=== PATIENT | female | born 1985 | race Caucasian/White ===

== ENCOUNTER → 2019-12-11 | Outpatient (CLI) | payer OTHER | END | disposition home or self-care (01) | LOC: LABWHC1 10:20 | PROVIDERS: ATTEND Family Medicine | DX: Z20.828 Contact with and (suspected) exposure to other viral communicable diseases (principal) | CPT/HCPCS: U0003; C9803 ==

== ENCOUNTER 2020-05-04 15:34 | Inpatient (IN) | payer OTHER ==
[2020-05-07] MEDS ORDERED: LIDOCAINE 0.5% (PF) 5 MG/ML (50 ML SDV) SQ PRN (06:29)
[2020-05-07] MEDS ORDERED: OXYTOCIN 10 UNIT/ML 1 ML VIAL IM PRN (06:29)
[2020-05-07] MEDS ORDERED: CARBOPROST TROMETHAMINE 250 MCG/ML 1 ML AMP IM PRN (06:29)
[2020-05-07] MEDS ORDERED: TERBUTALINE 1 MG/ML VIAL SQ PRN (06:29)
[2020-05-07] MEDS ORDERED: METHYLERGONOVINE 0.2 MG/ML 1 ML AMP IM PRN (06:29)
[2020-05-07] MEDS ORDERED: PENICILLIN G POTASSIUM 5,000,000 UNIT in DEXTROSE 5% IN WATER 100 ML IVPB STA ×2 (06:29)
[2020-05-07] MEDS ORDERED: OXYTOCIN 30 UNITS/500 ML NS 30 UNIT in SALINE 1 500ML.BAG IV SCH ×2 (06:30→20:15)
[2020-05-07] MEDS: LACTATED RINGERS 1,000 ML IV SCH ×3 (06:36→16:46)
[2020-05-07 07:15] LABS: Basophils % (A) 0 %; Eosinophils # (A) 0.1 k/uL (0-0.7); Eosinophils % (A) 1 %; HCT 35.6 % (34.0-46.0); HGB 12.3 gm/dL (11.4-16.0); Lymphocytes # (A) 1.8 k/uL (1.0-4.8); Lymphocytes % (A) 19 %; MCH 30.5 pg (25.0-35.0); MCHC 34.5 g/dL (31.0-37.0); MCV 88.4 fL (80.0-100.0); Mean Platelet Volume 9.4; Monocytes # (A) 0.7 k/uL (0-1.0); Monocytes % (A) 7 %; Neutrophils # (A) 6.9 k/uL (1.3-7.7); Neutrophils % (A) 72 %; Platelet Count 197 k/uL (150-450); RBC 4.03 m/uL (3.80-5.40); RDW 14.3 % (11.5-15.5); WBC 9.6 k/uL (3.8-10.6)
--- NOTE | 2020-05-07 07:59 | P.HPOB ---
History of Present Illness H&P Date: 05/07/20 Chief Complaint: Postdates This is a 34-year-old 3 para 2001 woman with an estimated due date of 05/02/2020 who was admitted at 40-5/7 weeks gestation for postdates induction of labor. Estimated due date is based on first trimester ultrasound. Her pregnan cy has been uncomplicated. She has a history of chronic hypertension on however has not been on medications for many years and her blood pressures have been stable throughout the . She reports irregular contraction activity over the last several days but denies leakage of fluids or vaginal bleeding. RODRIGUE yesterday was 14 cm and she had a reactive NST. Obstetric history: 1999 1138 week normal spontaneous vaginal delivery, 2012 39 week normal spontaneous vaginal delivery. Largest infant was 7 lbs. 9 oz. Laboratory data: Group B strep positive, blood type O+, antibody screen negativ e, rubella immune, VDRL nonreactive, hep Glenny surface antigen negative, HIV negative, gonorrhea and clinic cultures negative, glucose tolerance testing within normal limits. Review of Systems All systems: negative Past Medical History Past Medical History: No Reported History Past Surgical History: No Surgical Hx Reported Past Anesthesia/Blood Transfusion Reactions: No Reported Reaction Past Psychological History: No Psychological Hx Reported Smoking Status: Never smoker Past Alcohol Use History: None Reported Past Drug Use History: None Reported Medications and Allergies Home Medications Medication Instructions Recorded Confirmed Type Pnv No.95/Ferrous Fum/Folic AC 1 tab PO ONCE 05/07/20 05/07/20 History [ Multivitamin Tablet] Allergies Allergy/AdvReac Type Severity Reaction Status Date / Time No Known Allergies Allergy Verified 05/07/20 06:28 Exam Intake and Output 05/06/20 05/07/20 05/07/20 22:59 06:59 14:59 Other: Weight 99.337 kg This is a pleasant, visibly gravid female. By Phillip estimated weight is 8 pounds. On pelvic examination the cervix is 3 cm dilated, 80% effaced and the vertex is in the -2 station. Artificial rupture of membranes is undertaken and scant clear fluid is noted. heart tones are category 1 and she is irregularly yudy. Results Result Diagrams: 05/07/20 06:53 Assessment and Plan (1) Post-dates Current Visit: Yes Status: Acute Code(s): O48.0 - POST-TERM SNOMED Code(s): 68740735 (2) GBS (group B Streptococcus carrier), +RV culture, currently Current Visit: Yes Status: Acute Code(s): O99.820 - STREPTOCOCCUS B CARRIER STATE COMPLICATING SNOMED Code(s): 5644961406822 Plan: 34-year-old 3 para 2 woman admitted at 40-5/7 weeks gestation for postda zuhair induction of labor. Group B strep prophylactic antibiotics have been initiated. She is Rh+. status is currently reassuring. She may have an epidural anesthetic upon request. Anticipate normal spontaneous vaginal delivery.
[2020-05-07] MEDS: PENICILLIN G POTASSIUM 2,500,000 UNIT in DEXTROSE 5% IN WATER 100 ML IVPB SCH ×6 (10:59→14:48)
[2020-05-07] MEDS ORDERED: SODIUM CHLORIDE 0.9% 100 ML BAG ONE (16:30)
[2020-05-07] MEDS ORDERED: ROPIVACAINE 5MG/ML 20ML VIAL ONE (16:30)
[2020-05-07] MEDS ORDERED: fentaNYL (PF) 50 MCG/ML 5 ML AMP ONE (16:30)
[2020-05-07] MEDS ORDERED: CITRIC ACID-SODIUM CITRATE 15 ML CUP PO ONE ×2 (18:55→19:00)
[2020-05-07] MEDS ORDERED: KETOROLAC 15 MG/ML 1 ML VIAL ONE (19:06)
[2020-05-07] MEDS ORDERED: NALBUPHINE 10 MG/ML (1 ML AMP) ONE (19:06)
[2020-05-07] MEDS ORDERED: MORPHINE SULFATE (PF) 0.3 MG/0.3 ML SYR ONE (19:06)
[2020-05-07] MEDS ORDERED: ONDANSETRON 4 MG/2 ML VIAL ONE (19:06)
[2020-05-07] MEDS ORDERED: LIDOCAINE 2% (PF) 20 MG/ML 10 ML AMP ONE (19:06)
[2020-05-07] MEDS ORDERED: OXYTOCIN 10 UNIT/ML 1 ML VIAL ONE (19:06)
[2020-05-07] MEDS ORDERED: ZOLPIDEM 5 MG TAB PO PRN (20:01)
[2020-05-07] MEDS ORDERED: SIMETHICONE 80 MG CHEWABLE PO PRN (20:01)
[2020-05-07] MEDS ORDERED: NALOXONE 0.4 MG/ML 1 ML VIAL IV PRN (20:01)
[2020-05-07] MEDS ORDERED: METOCLOPRAMIDE 5 MG/ML 2 ML VIAL IVP PRN (20:01)
[2020-05-07] MEDS ORDERED: diphenhydrAMINE 25 MG CAP PO PRN (20:01)
[2020-05-07] MEDS ORDERED: diphenhydrAMINE 50 MG CAP PO PRN (20:01)
[2020-05-07] MEDS ORDERED: diphenhydrAMINE 50 MG/ML 1 ML VIAL IVP PRN ×2 (20:01)
[2020-05-07] MEDS ORDERED: ONDANSETRON 4 MG/2 ML VIAL IVP PRN (20:01)
[2020-05-07] MEDS ORDERED: HYDROmorphone 2 MG TAB PO PRN (20:01)
--- NOTE | 2020-05-07 20:01 | P.OP ---
Date of Procedure: 05/07/20 Preoperative Diagnosis: Postdates Arrestive descent and dilatation in the first stage Group B strep positive Postoperative Diagnosis: Postdates Arrestive descent dilatation in the first stage Occiput posterior position Group B strep positive Procedure(s) Performed: Primary low transverse section Anesthesia: epidural Surgeon: Irasema Roca Glost Tile Shader #1: Michelle Bean Estimated Blood Loss (ml): 400 IV fluids (ml): 800 Urine output (ml): 200 Pathology: none sent Condition: stable Disposition: PACU Indications for Procedure: This is a 34-year-old 3 para 2001 woman who is admitted at 40-5/7 weeks gestation for postdates induction of labor. On admission she was 3 cm dilated and Pitocin induction of labor was initiated. She underwent artificial rupture of membranes. She progressed to approximately 5.5 cm x 4 PM and received an epidural anesthetic. She received group B strep prophylactic antibiotics. By 7 PM she remained approximately 5.5 cm dilated and had significant caput Formation and high station. Significant concern for mal- presentation was had. Options were reviewed with the patient including risks and benefits of section versus undergoing induction of labor. They wish to proceed with section which I believe is the appropriate decision. Risks benefits and alternatives were reviewed. Operative Findings: Male in the asynclitic occiput posterior position with nuchal cord 1. Apgars of 8 at 1 minute and 9 at 5 minutes weighing 7 lbs. 2 oz., 30-40 g. Normal-appearing bilateral fallopian tubes and ovaries. Description of Procedure: After the patient and her were counseled and the epidural anesthetic was bolused, she was taken to the operating room where she was positioned, prepped and draped in the dorsal supine position with a leftward tilt. Khalil catheter was in place. After anesthetic was confirmed adequate a low transverse skin incision was made and carried down to the underlying fascia sharply and with the electrocautery. The fascia was incised in the midline and extended bilaterally. The inferior and superior aspects of the fascial incision were elevated and the underlying rectus muscles dissected off sharply and with the electrocautery. The rectus muscles were in the midline and the peritoneum was tented up and entered sharply. The peritoneal incision was extended inferiorly and superiorly with good visualization the bladder. The bladder blade was placed and the vesicouterine peritoneum was identified, tented up and entered. Bladder flap was created. The low uterine segment was very thin. A low uterine incision was made and bluntly carried down to the underlying amniotic fluid. On the incision was then extended bilaterally bluntly. The 's head was not well engaged and was delivered from the incision from the occiput posterior, asynclitic position. A nuchal cord 1 was removed. Nose and mouth were bulb suctioned. The rest the was delivered onto the field. The cord was clamped and cut and the infant was taken to the warmer. An intact, three-vessel cord placenta was then manually removed. The uterus was exteriorized. The uterine incision was delineated using Marie's. The low portion of the uterine incision was done to be extremely thin and friable. The uterus was closed carefully in a running locked fashion with 0 Vicryl suture followed by second imbricating layer of the same. Additional [id number]-al-pioqz sutures were placed along the very delicate low on the lower aspect of the incision. Surgicel was placed along the incision after was returned to the abdomen to ensure hemostasis. Hemostasis was observed. The gutters were cleared of all clot and debris. The peritoneum was reapproximated in the midline. The rectus muscles were inspected and Bovie electrocautery was utilized were necessary for hemostasis. The fascia was then closed in a running fashion with 0 Vicryl suture. The subcuticular tissues copiously suction irrigated and reapproximated with 3-0 chromic. The skin was then closed in a subcutaneous fashion with 4-0 Vicryl suture. REPORTED to me as correct by the operating room staff. She received Pitocin following cord clamping and antibiotics preoperatively. She was transported to recovery area in good condition.
[2020-05-08] MEDS: LACTATED RINGERS 1,000 ML IV SCH ×6 (05:50→23:21)
[2020-05-08] MEDS: PENICILLIN G POTASSIUM 2,500,000 UNIT in DEXTROSE 5% IN WATER 100 ML IVPB SCH ×2 (05:50)
[2020-05-08] MEDS: IBUPROFEN IV 800 MG in SODIUM CHLORIDE 0.9% 250 ML IV SCH ×2 (05:51→08:54)
[2020-05-08] MEDS: ACETAMINOPHEN TAB 500 MG TAB PO SCH ×4 (05:51→23:20)
[2020-05-08 06:09] LABS: Basophils % (A) 0 %; Eosinophils % (A) 0 %; HCT 32.1 % (34.0-46.0); HGB 10.6 gm/dL (11.4-16.0); Lymphocytes # (A) 1.7 k/uL (1.0-4.8); Lymphocytes % (A) 11 %; MCH 29.6 pg (25.0-35.0); MCV 89.7 fL (80.0-100.0); Mean Platelet Volume 9.2; Monocytes # (A) 0.7 k/uL (0-1.0); Monocytes % (A) 4 %; Neutrophils # (A) 12.5 k/uL (1.3-7.7); Neutrophils % (A) 84 %; Platelet Count 191 k/uL (150-450); RBC 3.58 m/uL (3.80-5.40); RDW 14.7 % (11.5-15.5)
--- NOTE | 2020-05-08 06:39 | P.PN ---
Progress Note - Text 05/08/20 616am 34-year-old female status post . Patient received Duramorph why the epidural in the end of the procedure, patient seen and evaluated this morning, VAS 0 with mild pruritus. Patient doing well
[2020-05-08] MEDS: SENNOSIDES-DOCUSATE SODIUM 1 EACH TAB PO SCH ×2 (08:07→19:45)
--- NOTE | 2020-05-08 09:23 | P.PNOBGPC ---
Subjective - Subjective Interval history: Feeling well overnight. Breast-feeding successfully Patient reports: Reports appetite normal, Reports pain well controlled, Reports ambulating normally, Denies voiding normally (Catheter removed 2 hours ago. No spontaneous void yet.), Denies nauseated [place]: doing well, nursing well (Circumcision completed) Objective - Vital Signs Latest vital signs: Vital Signs Temp Pulse Resp BP Pulse Ox 05/08/20 08:00 97.9 F 69 105/68 100 05/07/20 22:00 70 16 112/69 95 05/07/20 21:24 74 16 105/72 95 05/07/20 21:00 75 15 99/57 05/07/20 20:45 74 16 99/57 90 L 05/07/20 20:30 68 16 95/52 99 05/07/20 20:15 56 L 16 79/40 97 05/07/20 20:00 96.1 F L 61 16 82/44 94 L Intake and Output 05/07/20 05/08/20 05/08/20 22:59 06:59 14:59 Intake Total 132.733 Output Total 200 Balance -67.267 Intake: Intake, IV Titration 12.733 Amount Oxytocin 30 Units/500 ml 12.733 Ns 30 unit In Saline 1 500ml.bag @ Per Protocol IV .Q0M [facility] Rx#:[id number] Oral 120 Output: Urine 200 Other: Voiding Method Indwelling Catheter - Exam Extremities: Present: normal, edema. Absent: tenderness Abdomen: Present: normal appearance, soft, tenderness. Absent: distention Incision: Present: normal, dry, intact, dressed Uterus: Present: normal, firm. Absent: tenderness - Labs Labs: Abnormal Lab Results - Last 24 Hours (Table) 05/08/20 Range/Units 05:30 WBC 15.0 H (3.8-10.6) k/uL RBC 3.58 L (3.80-5.40) m/uL Hgb 10.6 L (11.4-16.0) gm/dL Hct 32.1 L (34.0-46.0) % Neutrophils # 12.5 H (1.3-7.7) k/uL Assessment and Plan (1) Post-dates Current Visit: Yes Status: Acute Code(s): O48.0 - POST-TERM SNOMED Code(s): 53407995 (2) GBS (group B Streptococcus carrier), +RV culture, currently Current Visit: Yes Status: Acute Code(s): O99.820 - STREPTOCOCCUS B CARRIER STATE COMPLICATING SNOMED Code(s): 9502057383852 (3) Nuchal cord Current Visit: Yes Status: Acute Code(s): O69.81X0 - LABOR AND DEL COMP BY CORD AROUND NECK, W/O COMPRSN, UNSP SNOMED Code(s): 753209753 (4) Occiput posterior presentation of fetus Current Visit: Yes Status: Acute Code(s): O64.0XX0 - OBSTRUCTED LABOR DUE TO INCMPL ROTATION OF HEAD, UNSP SNOMED Code(s): 17931315 (5) Status post delivery Current Visit: Yes Status: Acute Code(s): Z98.891 - HISTORY OF UTERINE SCAR FROM PREVIOUS SURGERY SNOMED Code(s): 444075306 Plan: Postop day one half status post primary low transverse section for arrest of descent and dilatation in the first stage of labor, occiput posterior position. Events of labor and delivery again reviewed with the patient and her . She is recovering well. Discussed scheduled oral pain medication use alternating ibuprofen and Tylenol. Circumcision is completed. Routine care.
[2020-05-08] MEDS: IBUPROFEN 600 MG TAB PO SCH (18:37)
[2020-05-09] MEDS: ACETAMINOPHEN TAB 500 MG TAB PO SCH (01:02)
[2020-05-09] MEDS: IBUPROFEN 600 MG TAB PO SCH ×3 (01:27→09:08)
--- NOTE | 2020-05-09 08:16 | P.DS ---
Providers Date of admission: 05/07/20 06:15 Expected date of discharge: 05/09/20 Attending physician: Irasema Roca Primary care physician: Stated None Hospital Course: This is a 34-year-old white female 3 para 2001 EDC 05/02/2020 at 40-5/7 weeks' gestation. Patient presented for induction for postdates , rupee strep cultures positive, rubella status immune, blood type O positive. Please see dictated history and physical for details. Patient had arrest of dilatation and descent in the first stage of labor and therefore a primary low transverse section was performed. She gave to a liveborn male with scores of 8 and 9 at one and 5 minutes respectively. She did receive appropriate antibiotic prophylaxis for group B strep positive status. weighed 3-40 g or 7 lbs. 2 oz. There was an estimated blood loss of 400 mL recorded. There was a nuchal cord 1. Please see dictated operative note for details. Postoperatively the patient has done well. This morning she is voiding, ambulating, passing flatus without difficulty. Vital signs are stable and she is afebrile. Fundus is firm and in the midline, symmetric and 18 week size. Circumcision has been performed. Patient's breasts are not engorged. Breast- feeding is going well. Incision is clean and dry, intact, Steri-Strips applied. Extremities are negative for edema. Patient is judged to be in very good cond ition for discharge home. She will follow-up in the office in 2 weeks. I have reminded her no intercourse, tampons or douching. She will use vlqp-dea-roplosk Advil or Aleve, or Motrin as needed for pain. She will call with any fevers shakes or chills, foul smelling or copious lochia, with the passage of large blood clots, with any pain not alleviated by agpa-kxa-vbxniik products, or indeed with any concerns. will follow-up with joiner as recommended. Assessment: Doing well day number two Patient Condition at Discharge: Good Plan - Discharge Summary Discharge Rx Participant: No New Discharge Prescriptions: No Action Pnv No.95/Ferrous Fum/Folic AC [ Multivitamin Tablet] 1 tab PO ONCE Discharge Medication List Pnv No.95/Ferrous Fum/Folic AC [ Multivitamin Tablet] 1 tab PO ONCE 05/07/20 [History] Follow up Appointment(s)/Referral(s): Irasema Roca MD [STAFF PHYSICIAN] - 2 Weeks Discharge Disposition: HOME SELF-CARE
[2020-05-09] MEDS: SENNOSIDES-DOCUSATE SODIUM 1 EACH TAB PO SCH (09:08)
[2020-05-09 09:56] VITALS: BP 130/85; PULSE 71; RESP 18; TEMP 98.5
== END 2020-05-09 14:10 | disposition home or self-care (01) | DRG 788 ==
LOC: 4FBP 05-07 06:15
PROVIDERS: ADMIT Obstetrics & Gynecology; ATTEND Obstetrics & Gynecology
PROC: 3E033VJ Introduction of Other Hormone into Peripheral Vein, Percutaneous Approach (ICD-10-PCS; 2020-05-07)
PROC: 10D00Z1 Extraction of Products of Conception, Low, Open Approach (ICD-10-PCS; principal; 2020-05-07 19:00)
DX: O48.0 Post-term pregnancy (principal); Z37.0 Single live birth; Z3A.40 40 weeks gestation of pregnancy; O16.4 Unspecified maternal hypertension, complicating childbirth; O99.824 Streptococcus B carrier state complicating childbirth; L29.9 Pruritus, unspecified; O69.81X0 Labor and delivery complicated by cord around neck, without compression, not applicable or unspecified; O66.9 Obstructed labor, unspecified; O62.0 Primary inadequate contractions; O75.89 Other specified complications of labor and delivery
CPT/HCPCS: 85025; 86850; 86900; 86901

== ENCOUNTER 2020-10-14 23:21 | Inpatient (IN) | payer OTHER ==
[2020-10-14] MEDS ORDERED: SODIUM CHLORIDE 0.9% 1,000 ML IV STA (23:55)
[2020-10-14] MEDS ORDERED: PANTOPRAZOLE 40 MG/10 ML VIAL IVP STA (23:55)
[2020-10-14] MEDS ORDERED: ONDANSETRON 4 MG/2 ML VIAL IVP STA (23:55)
[2020-10-14] MEDS ORDERED: KETOROLAC 15 MG/ML 1 ML VIAL IVP STA (23:55)
--- NOTE | 2020-10-15 00:04 | ED ---
Abdominal Pain HPI - General Chief Complaint: Abdominal Pain Stated Complaint: Rt Side Pain Time Seen by Provider: 10/14/20 23:29 Source: patient Mode of arrival: ambulatory Limitations: no limitations - History of Present Illness Initial Comments: 34-year-old female presenting to emergency Department with a chief complaint of abdominal pain. Patient reports symptoms began on Monday with somewhat of a sudden onset pain in the right lower quadrant region. States she went to her primary care physician advised to come to the emergency department appendicitis. Patient reports she has also developed nausea and multiple episodes of nonbilious and nonbloody vomiting. States her primary care physician prescribe her ciprofloxacin and she took one dose of the medication today. States the pain does not seem to be radiating. Does not appear to be postprandial. Denies any neck pain chest pain shortness of breath. She reports some chills but denie s any fevers. Denies hematuria, hematochezia or melena. Denies any vaginal symptoms. Denies dysuria, increased urgency or frequency. - Related Data Home Medications Medication Instructions Recorded Confirmed Pnv No.95/Ferrous Fum/Folic AC 1 tab PO ONCE 05/07/20 05/07/20 [ Multivitamin Tablet] Allergies Allergy/AdvReac Type Severity Reaction Status Date / Time No Known Allergies Allergy Verified 10/14/20 23:24 Review of Systems ROS Statement: Those systems with pertinent positive or pertinent negative responses have been documented in the HPI. ROS Other: All systems not noted in ROS Statement are negative. Past Medical History Past Medical History: No Reported History History of Any Multi-Drug Resistant Organisms: None Reported Past Surgical History: Section Past Anesthesia/Blood Transfusion Reactions: No Reported Reaction Past Psychological History: No Psychological Hx Reported Smoking Status: Never smoker Past Alcohol Use History: None Reported Past Drug Use History: None Reported - Past Family History Mother Family Medical History: No Reported History General Exam Limitations: no limitations General appearance: alert, in no apparent distress, obese Head exam: Present: atraumatic, normocephalic, normal inspection Eye exam: Present: normal appearance Pupils: Present: normal accommodation ENT exam: Present: normal exam, normal oropharynx, mucous membranes moist Neck exam: Present: normal inspection, full ROM. Absent: tenderness Respiratory exam: Present: normal lung sounds bilaterally. Absent: respiratory distress, wheezes, rales, rhonchi, stridor Cardiovascular Exam: Present: regular rate, normal rhythm, normal heart sounds. Absent: systolic murmur Extremities exam: Present: normal inspection, full ROM, normal capillary refill. Absent: tenderness, pedal edema, joint swelling Back exam: Present: normal inspection, full ROM. Absent: tenderness, CVA tenderness (R), CVA tenderness (L), muscle spasm, paraspinal tenderness, vertebral tenderness Neurological exam: Present: alert, oriented X3 Psychiatric exam: Present: normal affect, normal mood Skin exam: Present: warm, dry, intact, normal color Course Vital Signs 10/14/20 10/15/20 23:24 00:24 Temperature 98.9 F 98.7 F Pulse Rate 128 H 87 Respiratory 20 16 Rate Blood Pressure 135/73 138/89 O2 Sat by Pulse 97 100 Oximetry Medical Decision Making - Medical Decision Making 34-year-old female presenting to emergency Department with a chief complaint of abdominal pain. On physical examination, right lower quadrant tenderness. Patient was given IV fluids, antiemetics and analgesia. Laboratory work reveals leukocytosis 14,000. CT of the pelvis shows appendicitis. Perforation is poss ible. Patient will be started on Zosyn and Flagyl. Nothing by mouth. I spoke to Dr. Allen who will admit the patient further medical management. Case discussed with - Lab Data Result diagrams: 10/15/20 00:00 10/15/20 00:00 Lab Results 10/15/20 10/15/20 10/15/20 Range/Units 00:00 00:00 00:00 WBC 14.1 H (3.8-10.6) k/uL RBC 4.17 (3.80-5.40) m/uL Hgb 12.9 (11.4-16.0) gm/dL Hct 37.5 (34.0-46.0) % MCV 89.9 (80.0-100.0) fL MCH 30.8 (25.0-35.0) pg MCHC 34.3 (31.0-37.0) g/dL RDW 13.4 (11.5-15.5) % Plt Count 262 (150-450) k/uL MPV 7.8 Neutrophils % 83 % Lymphocytes % 11 % Monocytes % 4 % Eosinophils % 0 % Basophils % 0 % Neutrophils # 11.8 H (1.3-7.7) k/uL Lymphocytes # 1.6 (1.0-4.8) k/uL Monocytes # 0.6 (0-1.0) k/uL Eosinophils # 0.1 (0-0.7) k/uL Basophils # 0.0 (0-0.2) k/uL Sodium (137-145) mmol/L Potassium (3.5-5.1) mmol/L Chloride (98-107) mmol/L Carbon Dioxide (22-30) mmol/L Anion Gap mmol/L BUN (7-17) mg/dL Creatinine (0.52-1.04) mg/dL Est GFR (CKD-EPI)AfAm (>60 ml/min/1.73 sqM) Est GFR (CKD-EPI)NonAf (>60 ml/min/1.73 sqM) Glucose (74-99) mg/dL Calcium (8.4-10.2) mg/dL Total Bilirubin (0.2-1.3) mg/dL AST (14-36) U/L ALT (4-34) U/L Alkaline Phosphatase (38-126) U/L Total Protein (6.3-8.2) g/dL Albumin (3.5-5.0) g/dL Amylase (30-110) U/L Lipase (23-300) U/L Urine Color Yellow Urine Appearance Cloudy H (Clear) Urine pH 7.0 (5.0-8.0) Ur Specific [place] 1.009 (1.001-1.035) Urine Protein Negative (Negative) Urine Glucose (UA) Negative (Negative) Urine Ketones Trace H (Negative) Urine Blood Negative (Negative) Urine Nitrite Negative (Negative) Urine Bilirubin Negative (Negative) Urine Urobilinogen <2.0 (<2.0) mg/dL Ur Leukocyte Esterase Large H (Negative) Urine RBC 2 (0-5) /hpf Urine WBC 24 H (0-5) /hpf Ur Squamous Epith Cells 4 (0-4) /hpf Urine Bacteria Occasional H (None) /hpf Urine Mucus Rare H (None) /hpf Urine HCG, Qual Not Detected (Not Detectd) 10/15/20 Range/Units 00:00 WBC (3.8-10.6) k/uL RBC (3.80-5.40) m/uL Hgb (11.4-16.0) gm/dL Hct (34.0-46.0) % MCV (80.0-100.0) fL MCH (25.0-35.0) pg MCHC (31.0-37.0) g/dL RDW (11.5-15.5) % Plt Count (150-450) k/uL MPV Neutrophils % % Lymphocytes % % Monocytes % % Eosinophils % % Basophils % % Neutrophils # (1.3-7.7) k/uL Lymphocytes # (1.0-4.8) k/uL Monocytes # (0-1.0) k/uL Eosinophils # (0-0.7) k/uL Basophils # (0-0.2) k/uL Sodium 136 L (137-145) mmol/L Potassium 4.3 (3.5-5.1) mmol/L Chloride 102 (98-107) mmol/L Carbon Dioxide 26 (22-30) mmol/L Anion Gap 8 mmol/L BUN 5 L (7-17) mg/dL Creatinine 0.71 (0.52-1.04) mg/dL Est GFR (CKD-EPI)AfAm >90 (>60 ml/min/1.73 sqM) Est GFR (CKD-EPI)NonAf >90 (>60 ml/min/1.73 sqM) Glucose 114 H (74-99) mg/dL Calcium 9.1 (8.4-10.2) mg/dL Total Bilirubin 0.5 (0.2-1.3) mg/dL AST 23 (14-36) U/L ALT 16 (4-34) U/L Alkaline Phosphatase 106 (38-126) U/L Total Protein 7.1 (6.3-8.2) g/dL Albumin 4.2 (3.5-5.0) g/dL Amylase 41 (30-110) U/L Lipase 20 L (23-300) U/L Urine Color Urine Appearance (Clear) Urine pH (5.0-8.0) Ur Specific [place] (1.001-1.035) Urine Protein (Negative) Urine Glucose (UA) (Negative) Urine Ketones (Negative) Urine Blood (Negative) Urine Nitrite (Negative) Urine Bilirubin (Negative) Urine Urobilinogen (<2.0) mg/dL Ur Leukocyte Esterase (Negative) Urine RBC (0-5) /hpf Urine WBC (0-5) /hpf Ur Squamous Epith Cells (0-4) /hpf Urine Bacteria (None) /hpf Urine Mucus (None) /hpf Urine HCG, Qual (Not Detectd) Disposition Clinical Impression: Acute appendicitis Disposition: ADMITTED IP TO THIS HOSP Condition: Stable Is patient prescribed a controlled substance at d/c from ED?: No Referrals: Chel Silverman MD [Primary Care Provider] - 1-2 days Time of Disposition: 01:38
[2020-10-15 00:19] LABS: Basophils % (A) 0 %; Eosinophils # (A) 0.1 k/uL (0-0.7); Eosinophils % (A) 0 %; HCT 37.5 % (34.0-46.0); HGB 12.9 gm/dL (11.4-16.0); Lymphocytes # (A) 1.6 k/uL (1.0-4.8); Lymphocytes % (A) 11 %; MCH 30.8 pg (25.0-35.0); MCHC 34.3 g/dL (31.0-37.0); MCV 89.9 fL (80.0-100.0); Mean Platelet Volume 7.8; Monocytes # (A) 0.6 k/uL (0-1.0); Monocytes % (A) 4 %; Neutrophils # (A) 11.8 k/uL (1.3-7.7); Neutrophils % (A) 83 %; Platelet Count 262 k/uL (150-450); RBC 4.17 m/uL (3.80-5.40); RDW 13.4 % (11.5-15.5); WBC 14.1 k/uL (3.8-10.6)
[2020-10-15 00:23] LABS: Appearance,Urine Cloudy (Clear); Bacteria,Urine Occasional /hpf; Bilirubin,Urine Negative (Negative); Blood,Urine Negative (Negative); Color,Urine Yellow; Glucose,Urine (UA) Negative (Negative); Ketones,Urine Trace (Negative); Leukocyte Esterase,Urine Large (Negative); Mucus,Urine Rare /hpf; Nitrite,Urine Negative (Negative); Protein,Urine Negative (Negative); RBC,Urine 2 /hpf (0-5); Specific Gravity,Urine 1.009 (1.001-1.035); Squamous Epithelial Cell,Urine 4 /hpf (0-4); Urobilinogen,Urine <2.0 mg/dL (<2.0); WBC,Urine 24 /hpf (0-5)
[2020-10-15 00:56] LABS: ALT 16 U/L (4-34); AST 23 U/L (14-36); African American GFR (CKD) >90 (>60 ml/min/1.73 sqM); Albumin 4.2 g/dL (3.5-5.0); Alkaline Phosphatase 106 U/L (38-126); Amylase 41 U/L (30-110); Anion Gap 8 mmol/L; Blood Urea Nitrogen 5 mg/dL (7-17); Calcium 9.1 mg/dL (8.4-10.2); Carbon Dioxide 26 mmol/L (22-30); Chloride 102 mmol/L (98-107); Glucose 114 mg/dL (74-99); Lipase 20 U/L (23-300); Non-African American GFR(CKD) >90 (>60 ml/min/1.73 sqM); Potassium 4.3 mmol/L (3.5-5.1); Sodium 136 mmol/L (137-145); Total Bilirubin 0.5 mg/dL (0.2-1.3); Total Protein 7.1 g/dL (6.3-8.2)
--- NOTE | 2020-10-15 01:00 | CT ---
EXAMINATION TYPE: CT abdomen pelvis w con DATE OF EXAM: 10/15/2020 COMPARISON: None HISTORY: RLQ pain CT DLP: 1190.8 mGycm Automated exposure control for dose reduction was used. CONTRAST: Performed with IV Contrast, patient injected with 100 mL of Isovue 300. Lung bases are clear. There is no pleural effusion. Heart size is normal. There is no pericardial eff usion. Liver spleen stomach pancreas gallbladder appear intact. Bile ducts are not dilated. There is no adrenal mass. Kidneys show satisfactory contrast opacification. There is no hydronephrosi s. Bladder distends smoothly. Uterus is anteverted. There is no inguinal hernia. There is some low de nsity free fluid in the pelvis. There is extensive fat stranding in the right lower quadrant at the right paracolic gutter. The appen sherly is posterior and moderately dilated. There is 1.6 cm diameter appendix with wall thickening and i ntraluminal air. There is wall thickening at the tip of the cecum. Terminal ileum is not dilated. There is no evidence of free air. The lumbar vertebra have normal spacing and alignment. Posterior el ements are intact. Bony pelvis is intact. The hip joints appear intact. IMPRESSION: Extensive inflammatory changes right lower quadrant with dilated thick-walled appendix related to raymond endicitis. Perforation is possible. There is also fluid in the pelvis.
[2020-10-15] MEDS ORDERED: PIPERACILLIN-TAZOBACTAM 3.375 GM in SODIUM CHLORIDE 0.9% 100 ML IVPB STA (01:05)
[2020-10-15] MEDS ORDERED: metroNIDAZOLE-NS PMX 500 MG in SALINE 1 100ML.BAG IVPB STA (01:06)
[2020-10-15] MEDS ORDERED: MORPHINE SULFATE 4 MG/ML SYRINGE IV PRN (01:39)
[2020-10-15] MEDS ORDERED: NALOXONE 0.4 MG/ML 1 ML VIAL IV PRN (01:39)
[2020-10-15] MEDS ORDERED: HYDROmorphone 0.5 MG/0.5 ML SYRINGE IVP PRN (01:39)
[2020-10-15] MEDS: SODIUM CHLORIDE 0.9% 1,000 ML IV SCH ×2 (02:50→18:15)
[2020-10-15] MEDS ORDERED: PIPERACILLIN-TAZOBACTAM 3.375 GM in SODIUM CHLORIDE 0.9% 100 ML IVPB SCH (09:00)
[2020-10-15] MEDS: metroNIDAZOLE-NS PMX 500 MG in SALINE 1 100ML.BAG IVPB SCH ×2 (09:26→18:14)
--- NOTE | 2020-10-15 09:41 | P.GSHP ---
History of Present Illness H&P Date: 10/15/20 CHIEF COMPLAINT: Appendicitis HISTORY OF PRESENT ILLNESS: The patient is a 34-year-old female who presents with 4-5 day history of right lower quadrant abdominal pain. She reports being placed on antibiotics by her primary care provider in the last 2-3 days. She reports fevers at home including chills. She presented to the emergency room for worsening right lower quadrant abdominal pain including fevers despite oral antibiotics. She had additional diagnostic studies demonstrating perforated appendicitis. PAST MEDICAL HISTORY: See list and reviewed PAST SURGICAL HISTORY: See list and reviewed MEDICATIONS: See list and reviewed ALLERGIES: See list and reviewed SOCIAL HISTORY: See list and reviewed FAMILY HISTORY: See list and reviewed REVIEW OF ORGAN SYSTEMS: CONSTITUTIONAL: Reports fevers or chills at home. No recent weight loss. BMI 33.7, obesity EYES: Denies any trouble with vision. No glasses. HEENT: No difficulties with hearing. No nosebleeds. No difficulty swallowing. RESPIRATORY: Denies pneumonia. Denies any troubles with breathing or dyspnea on exertion. CARDIOVASCULAR: Denies any chest pain, palpitations, or recent heart attacks. Head tachycardia on admission heart rate of 127. GASTROINTESTINAL: Denies fatty food intolerance. Denies change in bowel habits and gas bloat. GENITOURINARY: Denies any blood in urine or increased urinary frequency. NEUROLOGICAL: Denies any numbness or tingling along the distal extremities. No seizure disorders or headaches. MUSCULOSKELETAL: Denies any back pain, stiffness or joint arthritis. SKIN: No current skin cancer. No rash. PSYCHIATRIC: Denies current depression or suicidal thoughts. ENDOCRINE: Denies current thyroid disorders. Denies any blood sugar glucose intolerance. HEME/LYMPHATIC: Denies any lumps and bumps around the neck. No recent deep venous thrombosis. ALLERGY/IMMUNOLOGY: No immunoglobulin therapy. No immune deficiencies. BREAST: Denies current breast lumps, pain or nipple discharge. PHYSICAL EXAM: VITALS: Reviewed CONSTITUTIONAL: Well developed and in no acute distress. EYES: Conjuctivae without sclera icterus. Extraocular movements grossly intact. HEAD, EARS, NOSE, THROAT: Moist buccal mucosa. Head is atraumatic, normocephalic. Hears conversational speech. No nasal drainage. NECK: Supple. No JV distention. No thyroidomegaly. RESPIRATORY: Non-labored respirations and equal bilateral excursions. No gross wheezes. CARDIOVASCULAR: Regular rate and rhythm. Extremities without moderate edema. Palpable 2+ radial pulses. ABDOMEN: Localized tenderness right lower quadrant without gross diffuse peritonitis. LYMPH: No neck lymphadenopathy. MUSCULOSKELETAL: Nail and fingers with good capillary refill. SKIN: Warm and well perfused with good skin turgor. NEUROLOGIC: Cranial nerves II through XII grossly intact. Sensation upper and extremities intact. No focal or lateralizing signs. PSYCH: Appropriate affect. Alert and oriented to person, place and time. Displays appropriate insight. CLINCAL LABS: Reviewed. WBC elevated on admission 14.1 leukocytosis. IMAGING: Independently reviewed CT of the abdomen and pelvis with severe inflammation right lower quadrant consistent with phlegmon perforated appendicitis. RADIOLOGY: Report reviewed CT of the abdomen and pelvis with perforated appendicitis identified. ASSESSMENT: 1. Ruptured appendicitis with phlegmon and sepsis PLAN: 1. On initial admission, patient presented with elevated white count of 14,000 including tachycardia heart rate of 120s and source of infection of ruptured appendicitis consistent with sepsis. Zosyn initiated and continued. Additional antibiotic Flagyl started. 2. Due to severe inflammation and phlegmon, conservative management IV antibiotics described. 3. Inpatient hospitalization 3-5 days described. 4. Potential of PICC line pending resolution of white count including response to antibiotic management. 5. Interval appendectomy described due to phlegmon and perforated appendicitis 6. All questions were addressed with the patient. 7. She reports low appetite and may have ice chips and popsicles for nutrition Past Medical History Past Medical History: No Reported History History of Any Multi-Drug Resistant Organisms: None Reported Past Surgical History: Section Past Anesthesia/Blood Transfusion Reactions: No Reported Reaction Past Psychological History: No Psychological Hx Reported Smoking Status: Never smoker Past Alcohol Use History: None Reported Past Drug Use History: None Reported - Past Family History Mother Family Medical History: No Reported History Medications and Allergies Home Medications Medication Instructions Recorded Confirmed Type Ciprofloxacin HCl [Cipro] 500 mg PO BID 10/15/20 10/15/20 History Phentermine HCl 37.5 mg PO DAILY 10/15/20 10/15/20 History Allergies Allergy/AdvReac Type Severity Reaction Status Date / Time No Known Allergies Allergy Verified 10/14/20 23:24 Surgical - Exam Vital Signs Temp Pulse Resp BP Pulse Ox 98.9 F 128 H 20 135/73 97 10/14/20 23:24 10/14/20 23:24 10/14/20 23:24 10/14/20 23:24 10/14/20 23:24 Results - Labs 10/16/20 06:53 10/15/20 00:00 Abnormal Lab Results - Last 24 Hours (Table) 10/15/20 10/15/20 10/15/20 Range/Units 00:00 00:00 00:00 WBC 14.1 H (3.8-10.6) k/uL Neutrophils # 11.8 H (1.3-7.7) k/uL Sodium 136 L (137-145) mmol/L BUN 5 L (7-17) mg/dL Glucose 114 H (74-99) mg/dL Lipase 20 L (23-300) U/L Urine Appearance Cloudy H (Clear) Urine Ketones Trace H (Negative) Ur Leukocyte Esterase Large H (Negative) Urine WBC 24 H (0-5) /hpf Urine Bacteria Occasional H (None) /hpf Urine Mucus Rare H (None) /hpf Diabetes panel 10/15/20 Range/Units 00:00 Sodium 136 L (137-145) mmol/L Potassium 4.3 (3.5-5.1) mmol/L Chloride 102 (98-107) mmol/L Carbon Dioxide 26 (22-30) mmol/L BUN 5 L (7-17) mg/dL Creatinine 0.71 (0.52-1.04) mg/dL Glucose 114 H (74-99) mg/dL Calcium 9.1 (8.4-10.2) mg/dL AST 23 (14-36) U/L ALT 16 (4-34) U/L Alkaline Phosphatase 106 (38-126) U/L Total Protein 7.1 (6.3-8.2) g/dL Albumin 4.2 (3.5-5.0) g/dL Calcium panel 10/15/20 Range/Units 00:00 Calcium 9.1 (8.4-10.2) mg/dL Albumin 4.2 (3.5-5.0) g/dL Pituitary panel 10/15/20 Range/Units 00:00 Sodium 136 L (137-145) mmol/L Potassium 4.3 (3.5-5.1) mmol/L Chloride 102 (98-107) mmol/L Carbon Dioxide 26 (22-30) mmol/L BUN 5 L (7-17) mg/dL Creatinine 0.71 (0.52-1.04) mg/dL Glucose 114 H (74-99) mg/dL Calcium 9.1 (8.4-10.2) mg/dL Adrenal panel 10/15/20 Range/Units 00:00 Sodium 136 L (137-145) mmol/L Potassium 4.3 (3.5-5.1) mmol/L Chloride 102 (98-107) mmol/L Carbon Dioxide 26 (22-30) mmol/L BUN 5 L (7-17) mg/dL Creatinine 0.71 (0.52-1.04) mg/dL Glucose 114 H (74-99) mg/dL Calcium 9.1 (8.4-10.2) mg/dL Total Bilirubin 0.5 (0.2-1.3) mg/dL AST 23 (14-36) U/L ALT 16 (4-34) U/L Alkaline Phosphatase 106 (38-126) U/L Total Protein 7.1 (6.3-8.2) g/dL Albumin 4.2 (3.5-5.0) g/dL Assessment and Plan (1) Acute appendicitis Current Visit: Yes Status: Acute Code(s): K35.80 - UNSPECIFIED ACUTE APPENDICITIS SNOMED Code(s): 21494940 (2) Perforated appendicitis Current Visit: Yes Status: Acute Code(s): K35.32 - ACUTE APPENDICITIS WITH PERF AND LOC PERITONITIS, W/O ABSCS SNOMED Code(s): 14572615 (3) Sepsis Current Visit: Yes Status: Acute Code(s): A41.9 - SEPSIS, UNSPECIFIED ORGANISM SNOMED Code(s): 28423916
[2020-10-15] MEDS: PIPERACILLIN-TAZOBACTAM 3.375 GM in SODIUM CHLORIDE 0.9% 100 ML IVPB SCH (18:15)
[2020-10-16] MEDS: PIPERACILLIN-TAZOBACTAM 3.375 GM in SODIUM CHLORIDE 0.9% 100 ML IVPB SCH ×3 (01:28→17:49)
[2020-10-16] MEDS: metroNIDAZOLE-NS PMX 500 MG in SALINE 1 100ML.BAG IVPB SCH ×3 (01:29→17:47)
[2020-10-16] MEDS: SODIUM CHLORIDE 0.9% 1,000 ML IV SCH ×2 (05:16→18:19)
[2020-10-16] MEDS: ACETAMINOPHEN TAB 500 MG TAB PO SCH ×3 (05:57→17:48)
[2020-10-16] MEDS: KETOROLAC 15 MG/ML 1 ML VIAL IVP SCH ×3 (05:58→17:48)
[2020-10-16 07:32] LABS: Basophils % (A) 0 %; Eosinophils # (A) 0.1 k/uL (0-0.7); Eosinophils % (A) 1 %; HCT 34.5 % (34.0-46.0); Lymphocytes # (A) 1.4 k/uL (1.0-4.8); Lymphocytes % (A) 20 %; MCH 29.2 pg (25.0-35.0); MCHC 31.9 g/dL (31.0-37.0); MCV 91.7 fL (80.0-100.0); Mean Platelet Volume 8.4; Monocytes # (A) 0.4 k/uL (0-1.0); Monocytes % (A) 5 %; Neutrophils % (A) 72 %; Platelet Count 223 k/uL (150-450); RBC 3.76 m/uL (3.80-5.40); RDW 13.6 % (11.5-15.5); WBC 6.9 k/uL (3.8-10.6)
--- NOTE | 2020-10-16 11:00 | P.PN ---
Subjective Progress Note Date: 10/16/20 CHIEF COMPLAINT: Ruptured appendicitis HISTORY OF PRESENT ILLNESS: The patient is a 34-year-old female who presented with almost one-week history of right lower quadrant abdominal pain. Patient was diagnosed with ruptured appendicitis with phlegmon. Since admission, her pain has improved. She is able to the bowel movement. She tolerated ice chips and popsicles. ROS: No reports of nausea and vomiting. No fevers or chills. No new chest pain. No productive sputum PHYSICAL EXAM: VITAL SIGNS: Reviewed CONSTITUTIONAL: Well developed and in no acute distress. EYES: Conjuctivae without sclera icterus. Extraocular movements grossly intact. HEAD, EARS, NOSE, THROAT: Moist buccal mucosa. Head is atraumatic, normocephalic. Hears conversational speech. No nasal drainage. NECK: No gross thyroidomegaly. No jugular venous distention. RESPIRATORY: Non-labored respirations and equal bilateral excursions. CARDIOVASCULAR: Palpable 2+ radial pulses. Regular rate. Regular rhythm. ABDOMEN: Tender right lower quadrant. No peritonitis. MUSCULOSKELETAL: No gross deformity of the lower extremities noted. No clubbing. No cyanosis. SKIN: Good skin turgor. Well perfused. NEUROLOGIC: Cranial nerves II through XII grossly intact. No focal or lateralizing signs. PSYCH: Appropriate affect. Alert and oriented to person, place and time. CLINICAL LABS: White blood cell count normal ASSESSMENT: 1. Ruptured appendicitis with phlegmon PLAN: 1. Clinically she is doing well on Zosyn. We'll continue IV antibiotics. 2. Start clear liquid diet. 3. Disposition pending tolerating diet and controlled symptoms on antibiotics orally. Objective - Vital Signs Vital signs: Vital Signs Temp 97.4 F L 10/16/20 09:16 Pulse 66 10/16/20 09:16 Resp 13 10/16/20 09:16 BP 113/78 10/16/20 09:16 Pulse Ox 95 10/16/20 09:16 Intake & Output 10/15/20 10/16/20 10/16/20 18:59 06:59 18:59 Intake Total 1100 Balance 1100 Intake: Intake, IV Titration 1100 Amount Piperacillin-Tazobactam 3 100 .375 gm In Sodium Chloride 0.9% 100 ml @ 25 mls/hr IVPB Q8H [facility] Rx#: [id number] Sodium Chloride 0.9% 1, 900 000 ml @ 75 mls/hr IV . [id number] [facility] Rx#:[id number] metroNIDAZOLE-NS PMX 500 100 mg In Saline 1 100ml.bag @ 100 mls/hr IVPB Q8H [facility] Rx#:[id number] Other: # Voids 3 1 - Labs CBC & Chem 7: 10/16/20 06:53 10/15/20 00:00 Labs: Abnormal Lab Results - Last 24 Hours (Table) 10/16/20 Range/Units 06:53 RBC 3.76 L (3.80-5.40) m/uL Hgb 11.0 L (11.4-16.0) gm/dL Microbiology - Last 24 Hours (Table) 10/15/20 01:25 Blood Culture - Preliminary Blood No Growth after 24 hours 10/15/20 01:40 Blood Culture - Preliminary Blood No Growth after 24 hours 10/15/20 00:00 Urine Culture - Preliminary Urine,Voided Assessment and Plan (1) Perforated appendicitis Current Visit: Yes Status: Acute Code(s): K35.32 - ACUTE APPENDICITIS WITH PERF AND LOC PERITONITIS, W/O ABSCS SNOMED Code(s): 02084946 (2) Sepsis Current Visit: Yes Status: Acute Code(s): A41.9 - SEPSIS, UNSPECIFIED ORGANISM SNOMED Code(s): 64987122
[2020-10-16] MEDS: ONDANSETRON 4 MG/2 ML VIAL IVP PRN ×2 (11:42→19:49)
[2020-10-17] MEDS: SODIUM CHLORIDE 0.9% 1,000 ML IV SCH (00:04)
[2020-10-17] MEDS: ACETAMINOPHEN TAB 500 MG TAB PO SCH ×3 (00:33→13:59)
[2020-10-17] MEDS: KETOROLAC 15 MG/ML 1 ML VIAL IVP SCH ×3 (00:34→13:59)
[2020-10-17] MEDS: PIPERACILLIN-TAZOBACTAM 3.375 GM in SODIUM CHLORIDE 0.9% 100 ML IVPB SCH ×2 (02:00→09:57)
[2020-10-17] MEDS: metroNIDAZOLE-NS PMX 500 MG in SALINE 1 100ML.BAG IVPB SCH ×2 (02:00→09:57)
[2020-10-17 08:59] VITALS: RESP 18
[2020-10-17 11:58] LABS: Basophils % (A) 1 %; Eosinophils % (A) 1 %; HCT 32.3 % (34.0-46.0); HGB 11.3 gm/dL (11.4-16.0); Lymphocytes # (A) 1.1 k/uL (1.0-4.8); Lymphocytes % (A) 23 %; MCH 31.8 pg (25.0-35.0); Mean Platelet Volume 8.3; Monocytes # (A) 0.2 k/uL (0-1.0); Monocytes % (A) 5 %; Neutrophils # (A) 3.4 k/uL (1.3-7.7); Neutrophils % (A) 69 %; Platelet Count 237 k/uL (150-450); RBC 3.55 m/uL (3.80-5.40); RDW 13.2 % (11.5-15.5); WBC 4.9 k/uL (3.8-10.6)
--- NOTE | 2020-10-17 15:02 | P.PN ---
Subjective Progress Note Date: 10/17/20 CHIEF COMPLAINT: Ruptured appendicitis HISTORY OF PRESENT ILLNESS: The patient is a 34-year-old female who presented with one-week history of right lower quadrant abdominal pain with perforated appendicitis. Her abdominal pain is resolved. She has minimal soreness along the right flank. She is sitting up in chair. She tolerated liquid diet. ROS: No reports of nausea and vomiting. No fevers or chills. No new chest pain. No productive sputum PHYSICAL EXAM: VITAL SIGNS: Reviewed CONSTITUTIONAL: Well developed and in no acute distress. EYES: Conjuctivae without sclera icterus. Extraocular movements grossly intact. HEAD, EARS, NOSE, THROAT: Moist buccal mucosa. Head is atraumatic, normo cephalic. Hears conversational speech. No nasal drainage. RESPIRATORY: Non-labored respirations and equal bilateral excursions. CARDIOVASCULAR: Palpable 2+ radial pulses. Regular rate. Regular rhythm. ABDOMEN: No peritonitis. MUSCULOSKELETAL: No gross deformity of the lower extremities noted. No clubbing. No cyanosis. SKIN: Good skin turgor. Well perfused. NEUROLOGIC: Cranial nerves II through XII grossly intact. No focal or lateralizing signs. PSYCH: Appropriate affect. Alert and oriented to person, place and time. CLINICAL LABS: White blood cell count normal at 4.9 ASSESSMENT: 1. Ruptured appendicitis with phlegmon PLAN: 1. Discharge home with oral antibiotics. 2. Follow-up in 3 days in the office. 3. Dietary instructions reviewed. Objective - Vital Signs Vital signs: Vital Signs Temp 98.2 F 10/17/20 08:00 Pulse 87 10/17/20 08:00 Resp 18 10/17/20 08:00 BP 123/87 10/17/20 08:00 Pulse Ox 100 10/17/20 08:00 Intake & Output 10/16/20 10/17/20 10/17/20 18:59 06:59 18:59 Intake Total 90 Balance 90 Intake: Oral 90 Other: # Voids 2 2 - Labs CBC & Chem 7: 10/17/20 11:20 10/15/20 00:00 Labs: Abnormal Lab Results - Last 24 Hours (Table) 10/17/20 Range/Units 11:20 RBC 3.55 L (3.80-5.40) m/uL Hgb 11.3 L (11.4-16.0) gm/dL Hct 32.3 L (34.0-46.0) % Microbiology - Last 24 Hours (Table) 10/15/20 01:25 Blood Culture - Preliminary Blood No Growth after 48 hours 10/15/20 01:40 Blood Culture - Preliminary Blood No Growth after 48 hours 10/15/20 00:00 Urine Culture - Final Urine,Voided Assessment and Plan (1) Acute appendicitis Current Visit: Yes Status: Acute Code(s): K35.80 - UNSPECIFIED ACUTE APPENDICITIS SNOMED Code(s): 93706228 (2) Perforated appendicitis Current Visit: Yes Status: Acute Code(s): K35.32 - ACUTE APPENDICITIS WITH PERF AND LOC PERITONITIS, W/O ABSCS SNOMED Code(s): 77448935 (3) Sepsis Current Visit: Yes Status: Acute Code(s): A41.9 - SEPSIS, UNSPECIFIED ORGANISM SNOMED Code(s): 70626563
--- NOTE | 2020-10-17 15:10 | P.DS ---
Providers Date of admission: 10/15/20 12:42 Expected date of discharge: 10/17/20 Attending physician: Maxine Allen Primary care physician: Chel Silverman - Discharge Diagnosis(es) (1) Acute appendicitis Current Visit: Yes Status: Acute (2) Perforated appendicitis Current Visit: Yes Status: Acute (3) Sepsis Current Visit: Yes Status: Acute Hospital Course: COURSE: The patient is a 34-year-old female who presented with one-week history of right lower quadrant abdominal pain with perforated appendicitis and phlegmon. Due to high surgical risk for complications including partial colectomy, interval appendectomy was described with current antibiotic treatment. She had done very well. WBC had normalized and she was tolerating diet. Antibiotic management was discussed and she confirmed no longer breast fe eding since last week. Patient Condition at Discharge: Good Plan - Discharge Summary Discharge Rx Participant: Yes New Discharge Prescriptions: New metroNIDAZOLE [Flagyl] 500 mg PO TID #30 tab Amoxic-Pot Clav 875-125Mg [Augmentin 875-125] 1 each PO Q12HR #20 tab Ibuprofen [Motrin] 600 mg PO Q8HR PRN #30 tab PRN Reason: Pain Discontinued Ciprofloxacin HCl [Cipro] 500 mg PO BID Phentermine HCl 37.5 mg PO DAILY Discharge Medication List Amoxic-Pot Clav 875-125Mg [Augmentin 875-125] 1 each PO Q12HR #20 tab 10/17/20 [Rx] Ibuprofen [Motrin] 600 mg PO Q8HR PRN #30 tab 10/17/20 [Rx] metroNIDAZOLE [Flagyl] 500 mg PO TID #30 tab 10/17/20 [Rx] Follow up Appointment(s)/Referral(s): Chle Silverman MD [Primary Care Provider] - 1-2 days Maxine Allen MD [STAFF PHYSICIAN] - 10/20/20 (Please call at 8 am Monday to confirm time) Patient Instructions/Handouts: Appendicitis (GEN) Activity/Diet/Wound Care/Special Instructions: Avoid steak, tough meats and seeds such as raspberry seeds until November 15 Use Tylenol and ibuprofen scheduled for the next 24-48 hours for best pain relief. Discharge Disposition: HOME SELF-CARE
[2020-10-17 15:44] VITALS: BP 136/86; PULSE 68; TEMP 98.1
--- NOTE | 2020-10-18 11:31 | P.PN ---
Progress Note - Text Progress Note Date: 10/18/20 Patient contacted at home via telephone. Left message to notify us for any problems. Follow-up slated for 3 days.
== END 2020-10-17 17:30 | disposition home or self-care (01) | DRG 871 ==
LOC: EC 23:21 → 6PED 10-15 01:58 → OBSVTOIN 10-15 12:42
PROVIDERS: ADMIT Surgery Plastic and Reconstructive Surgery; ATTEND Surgery Plastic and Reconstructive Surgery
DX: A41.9 Sepsis, unspecified organism (principal); K35.32 Acute appendicitis with perforation, localized peritonitis, and gangrene, without abscess
CPT/HCPCS: 36415; 74177; 80053; 81001; 81025; 82150; 83690; 85025; 87040; 87086; 96361; 96374; 96375; 99285

== ENCOUNTER 2020-11-16 11:55 | Day surgery (SDC) | payer OTHER ==
[2020-11-13 09:02] VITALS: BMI 32.5
--- NOTE | 2020-11-16 05:31 | P.GSHP ---
History of Present Illness H&P Date: 11/16/20 CHIEF COMPLAINT: Ruptured appendicits. HISTORY OF PRESENT ILLNESS: The patient is a previously healthy 35-year-old female with prior ruptured appendicitis 1 month ago. She has been on antibiotics. She presents for appendectomy. PAST MEDICAL HISTORY: See list and reviewed PAST SURGICAL HISTORY: See list and reviewed CURRENT MEDICATIONS: See list and reviewed ALLERGIES: See list and reviewed SOCIAL HISTORY: See list and reviewed FAMILY HISTORY: See list and reviewed REVIEW OF ORGAN SYSTEMS: CONSTITUTIONAL: Present fever, no chills. Denies recent weight loss. HEENT: Denies any trouble with vision, hearing or nosebleeds. No difficulty swallowing. LYMPHATIC: The patient denies any lumps and bumps around the neck. ENDOCRINE: Denies any thyroid disorders. Denies any blood sugar glucose intolerance. RESPIRATORY: Denies shortness of breath including chronic cough. CARDIOVASCULAR: Denies history of chest pain with exertion. GASTROINTESTINAL: Denies regurgitation of bile at night as well as intermittent nausea. No blood in stools. GENITOURINARY: Denies any blood in urine or increased urinary frequency. MUSCULOSKELETAL: Denies current joint arthritis. NEUROLOGIC: Denies any numbness or tingling along the distal extremities. No seizure disorders or headaches. PSYCHIATRIC: Denies any depression or suicidal ideation. HEMATOLOGIC: Denies any abnormal bleeding or bruising. PHYSICAL EXAMINATION: GENERAL: In no acute distress. Pleasant. HEENT: No sclera icterus. Extraocular movements grossly intact. Moist buccal mucosa. Head is atraumatic, normocephalic. Hears conversational speech. No nasal drainage. NECK: Supple without lymphadenopathy. No JV distention. CHEST: Non-labored respirations and equal bilateral excursions. CARDIOVASCULAR: Regular rate and rhythm. Palpable 2+ radial pulses. ABDOMEN: Soft, no peritonitis. MUSCULOSKELETAL: No clubbing, cyanosis or edema. NEUROLOGIC: No focal or lateralizing signs. PSYCH: Appropriate affect. Alert and oriented to person, place and time. SKIN: Well perfused. Good skin turgor. LABS: Reviewed. White blood cell count normal STUDIES: CT of the abdomen and pelvis reviewed with findings consistent with ruptured appendicitis with phlegmon. ASSESSMENT: 1. Ruptured appendicitis PLAN: 1. I have discussed benefits and risks of robotic appendectomy. 2. Bilateral SCDs. 3. She is elevated risk due to previous rupture. Past Medical History Past Medical History: No Reported History Additional Past Medical History / Comment(s): ruptured appendix inpt 10/15/20- 10/17/20 History of Any Multi-Drug Resistant Organisms: None Reported Past Surgical History: Section Past Anesthesia/Blood Transfusion Reactions: No Reported Reaction Smoking Status: Never smoker - Past Family History Mother Family Medical History: No Reported History Medications and Allergies Home Medications Medication Instructions Recorded Confirmed Type Amoxic-Pot Clav 875-125Mg 1 each PO Q12HR #20 tab 10/17/20 11/13/20 Rx [Augmentin 875-125] metroNIDAZOLE [Flagyl] 500 mg PO TID #30 tab 10/17/20 11/13/20 Rx Allergies Allergy/AdvReac Type Severity Reaction Status Date / Time No Known Allergies Allergy Verified 11/13/20 08:56
[~2020-11-16 11:55] MED LIST: DEXAMETHASONE SOD PHOSPHATE 4 MG/ML 1 ML VIAL IV ONE; HEPARIN SODIUM,PORCINE/PF 5,000 UNIT/0.5 ML SYRINGE SQ PRN; HYDROmorphone 0.5 MG/0.5 ML SYRINGE IVP PRN; LACTATED RINGERS 1,000 ML IV SCH; LIDOCAINE 1% (10MG/ML) FOR IV START INTRADERMA PRN; METOCLOPRAMIDE 5 MG/ML 2 ML VIAL IVP PRN; ONDANSETRON 4 MG/2 ML VIAL IVP ONE; SCOPOLAMINE 1.5MG/72HR PATCH TRANSDERM ONE; metroNIDAZOLE-NS PMX 500 MG in SALINE 1 100ML.BAG IVPB PRN
[2020-11-16 13:01] LABS: Basophils # (A) 0.1 k/uL (0-0.2); Basophils % (A) 1 %; Eosinophils # (A) 0.1 k/uL (0-0.7); Eosinophils % (A) 1 %; HCT 43.1 % (34.0-46.0); HGB 14.2 gm/dL (11.4-16.0); Lymphocytes # (A) 2.3 k/uL (1.0-4.8); Lymphocytes % (A) 25 %; MCH 30.1 pg (25.0-35.0); MCHC 32.9 g/dL (31.0-37.0); MCV 91.6 fL (80.0-100.0); Mean Platelet Volume 8.3; Monocytes # (A) 0.5 k/uL (0-1.0); Monocytes % (A) 5 %; Neutrophils % (A) 67 %; Platelet Count 256 k/uL (150-450); RDW 13.5 % (11.5-15.5)
[2020-11-16] MEDS ORDERED: fentaNYL (PF) 50 MCG/ML 2 ML AMP ONE (15:25)
[2020-11-16] MEDS ORDERED: GLYCOPYRROLATE 0.2 MG/ML 2 ML VIAL ONE (15:25)
[2020-11-16] MEDS ORDERED: DEXAMETHASONE SOD PHOSPHATE 10 MG/ML 1 ML VIAL ONE (15:25)
[2020-11-16] MEDS ORDERED: ROCURONIUM 10 MG/ML (5 ML VIAL) IV ONE (15:25)
[2020-11-16] MEDS ORDERED: SUCCINYLCHOLINE CHLORIDE 100 MG/5 ML SYR IV ONE (15:25)
[2020-11-16] MEDS ORDERED: PROPOFOL 10 MG/ML 20 ML VIAL IV ONE (15:25)
[2020-11-16] MEDS ORDERED: NEOSTIGMINE 1 MG/ML 10 ML VIAL ONE (15:25)
[2020-11-16] MEDS ORDERED: KETAMINE 10 MG/ML 20 ML VIAL ONE (15:25)
[2020-11-16] MEDS ORDERED: LIDOCAINE 1% INJ 10MG/ML (20 ML MDV) ONE (15:25)
[2020-11-16] MEDS ORDERED: MIDAZOLAM 2 MG/2 ML VIAL ONE (15:25)
[2020-11-16] MEDS ORDERED: KETOROLAC 15 MG/ML 1 ML VIAL ONE (15:25)
[2020-11-16] MEDS ORDERED: LIDOCAINE 0.5%-EPI 1:200,000 50 ML VIAL SQ ONE (15:51)
--- NOTE | 2020-11-16 16:29 | P.OP ---
Date of Procedure: 11/16/20 Description of Procedure: SURGEON: MAXINE ALLEN MD Preoperative Diagnosis: 1. Ruptured appendicitis with phlegmon 2. Prolonged antibiotic management Postoperative Diagnosis: 1. Appendicitis Procedure(s) Performed: 1. Robotic-assisted daVinci Xi laparoscopic appendectomy Anesthesia: GETA, local Estimated Blood Loss (ml): 5 Pathology: other (appendix) Condition: stable Disposition: floor Operative Findings: 1. Appendicitis with resolved phlegmon right oral quadrant 2. Terminal ileum unremarkable 3. Cecum unremarkable 4. Redundant sigmoid colon with risk for sigmoid volvulus INDICATIONS: The patient is a 35-year-old female who presents with prior ruptured appendicitis with phlegmon 1 month ago. She was treated with antibiotics for 4 weeks and brought back for interval appendectomy. Benefits and risks, including infection, open surgery, and bleeding for additional surger y was discussed at length. Informed consent was obtained. All questions of the patient and family were answered. DESCRIPTION: The patient was transferred to the operating room and placed in supine position. The patient had previously voided. The abdomen was then prepped and draped in standard sterile fashion as Ioban was placed along the abdomen to minimize any contamination of skin floor. After a timeout protocol was performed, attention was then brought to the left upper quadrant whereby a 0 degree 5 mm laparoscopic trocar entry was performed. The abdominal cavity was entered and insufflated to 12 mmHg pressure, which was tolerated well. Diagnostic laparoscopy demonstrated no injury to bowel, viscera or mesentery. Next a robotic 8-mm trocar was placed along the left lower quadrant, 10-cm lateral to the midline. A 12 mm port was placed along the left upper quadrant and another 8-mm port left lateral abdominal wall. Ports were placed 8 cm apart from each other including 15-20 cm away from the target anatomy of the right pelvis. The patient was then placed in Trendelenburg position, at least 14 down and right side up at least 7. The robotic da Luanne XI system was primed and docked from the left side of the patient. Using atraumatic graspers and vessel sealer, the robotic system was docked and primed as described. Instruments were interchanged by the orthotic assistant including graspers, robotic stapler and vessel sealer. Next, attention was brought to identify the cecum. A systematic view within the abdominal cavity was started with the small bowel which was unremarkable. The base of the cecum was unremarkable. No inguinal hernias were identified. The body of the appendix was moderately dilated with moderate periappendicitis. Resolved phlegmon was confirmed. The appendix was dissected free from its surrounding tissues. Blue 45 mm robotic staple loads were fired along the base of the appendix. The staple line was hemostatic. Hemostasis was checked prior to undocking the robot. The robot was undocked. I re-scrubbed into the case. The specimen was removed from the abdominal cavity with an Endo Catch bag through the 12 mm trocar at the left upper quadrant. The port site was closed with 0 Vicryl and Vahe Zheng. All instruments and pneumoperitoneum were evacuated from the abdominal cavity. Local anesthetic was infiltrated to all wounds for postop analgesia. All incisions were also cleansed with diluted hydrogen peroxide. The incisions were closed with 4-0 Monocryl. Exofin glue was applied to the rest of the skin incisions. The patient had tolerated the procedure well. The patient was extubated successfully. The patient was transferred to the postanesthesia care unit in stable condition. Plan - Discharge Summary Discharge Rx Participant: Yes New Discharge Prescriptions: New Simethicone [Gas-X] 125 mg PO AC-TID PRN #20 cap PRN Reason: Pain Ibuprofen [Motrin] 600 mg PO Q8HR PRN #30 tab PRN Reason: Pain Acetaminophen Tab [Tylenol Tab] 1,000 mg PO Q6HR PRN #30 tablet PRN Reason: Pain Discontinued metroNIDAZOLE [Flagyl] 500 mg PO TID #30 tab Amoxic-Pot Clav 875-125Mg [Augmentin 875-125] 1 each PO Q12HR #20 tab Discharge Medication List Acetaminophen Tab [Tylenol Tab] 1,000 mg PO Q6HR PRN #30 tablet 11/16/20 [Rx] Ibuprofen [Motrin] 600 mg PO Q8HR PRN #30 tab 11/16/20 [Rx] Simethicone [Gas-X] 125 mg PO AC-TID PRN #20 cap 11/16/20 [Rx] Follow up Appointment(s)/Referral(s): Maxine Allen MD [STAFF PHYSICIAN] - 11/24/20 Patient Instructions/Handouts: Laparoscopic Appendectomy (DC), *[facility]gery [facility] - Managing Your Pain After Surgery Without Opioids Activity/Diet/Wound Care/Special Instructions: No lifting over 10 pounds in 2 weeks, November 30. June shower. No bath tub soaks for two weeks, November 30. Diet as tolerated. Using antibacterial soap. Use ice along incisions for today to prevent swelling. Take tylenol, aleve/ibuprofen, simethicone scheduled for 3 days for best pain relief Discharge Disposition: HOME SELF-CARE
[2020-11-16 16:35] VITALS: TEMP 99.4
[2020-11-16] MEDS ORDERED: SODIUM CHLORIDE 0.9% 1,000 ML IV ONE ×2 (16:42)
[2020-11-16] MEDS ORDERED: ACETAMINOPHEN TAB 500 MG TAB ONE (17:48)
[2020-11-16] MEDS ORDERED: ACETAMINOPHEN TAB 500 MG TAB PO ONE (17:49)
[2020-11-16 18:35] VITALS: BP 122/71; PULSE 80; RESP 16
== END 2020-11-16 18:48 | disposition home or self-care (01) ==
LOC: OR 11:55
PROVIDERS: ATTEND Surgery Plastic and Reconstructive Surgery
DX: K35.32 Acute appendicitis with perforation, localized peritonitis, and gangrene, without abscess (principal); Z79.2 Long term (current) use of antibiotics
CPT/HCPCS: 44970; 81025; 85025; J2250; J1100 ×2; J2710; J0690; J2405; J2001; J3010; J1885; J0330; J2704; J1170; J1644